=== PATIENT | female | born 1985 | race Caucasian/White ===

== ENCOUNTER 2016-07-16 14:43 | Emergency (ER) | payer SELFPAY ==
[~2016-07-16] VITALS: Ht 162.6 cm; Wt 63.5 kg
[2016-07-16 14:58] VITALS: BP 108/70
[2016-07-16] MEDS ORDERED: LORAZEPAM 2 MG/ML VIAL IM ONE ×2 (15:15→16:00)
--- NOTE | 2016-07-16 15:19 | PHYS DOC ---
Past Medical History Past Medical History: Unknown Additional Past Medical Histor: PTSD Past Surgical History: Alcohol Use: Occasionally Drug Use: Other Social History Narrative: PCP, Amphetamine Adult General Chief Complaint Chief Complaint: ALTERED MENTAL STATUS HPI HPI Patient is a 31 year old female who presents by EMS for erratic behavior noticed by bystanders. Bystanders suspected she overdosed on something so they called EMS. 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 She has no complaints at this time. Review of Systems Review of Systems Constitutional: Denies fever or chills [] Eyes: Denies change in visual acuity, redness, or eye pain [] HENT: Denies nasal congestion or sore throat [] Respiratory: Denies cough or shortness of breath [] Cardiovascular: No additional information not addressed in HPI [] GI: Denies abdominal pain, nausea, vomiting, bloody stools or diarrhea [] : Denies dysuria or hematuria [] Musculoskeletal: Denies back pain or joint pain [] Integument: Denies rash or skin lesions [] Neurologic: Denies headache, focal weakness or sensory changes [] Endocrine: Denies polyuria or polydipsia [] Current Medications Current Medications Current Medications Medications (Trade) Dose Ordered Sig/Toy Start Time Stop Time Status Last Admin Dose Admin Lorazepam (Ativan) 2 mg 1X ONCE 07/16/16 16:00 07/16/16 16:03 DC Allergies Allergies Allergies Coded Allergies Type Severity Reaction Last Updated Verified No Known Drug Allergies 01/15/15 No Physical Exam Physical Exam Constitutional: Well developed, well nourished, no acute distress, non-toxic appearance. Has some rhythmic and writhing movements of upper body [] HENT: Normocephalic, atraumatic, bilateral external ears normal, oropharynx moist, no oral exudates, nose normal. [] Eyes: PERRLA, EOMI, conjunctiva normal, no discharge. [] Neck: Normal range of motion, no tenderness, supple, no stridor. [] Cardiovascular:Heart rate regular rhythm [] Lungs & Thorax: Bilateral breath sounds clear to auscultation [] Abdomen: Bowel sounds normal, soft, no tenderness. [] Skin: Warm, dry, no erythema, no rash. [] Back: No tenderness, no CVA tenderness. [] Extremities: No tenderness, ROM intact, no edema. [] Neurologic: Alert and oriented to self and situation, normal motor function, normal sensory function, no focal deficits noted. [] Psychologic: Affect normal, judgement impaired by intoxication, mood normal. [] Current Patient Data Vital Signs Vital Signs Date Time Temp Pulse Resp B/P Pulse Ox O2 Delivery O2 Flow Rate FiO2 07/16/16 14:58 97.9 129 22 108/70 100 Room Air 97.9 Lab Values Laboratory Tests Test 07/16/16 15:19 Glucose (Fingerstick) 82mg/dL (70-99) Course & Med Decision Making Course & Med Decision Making Pertinent Labs and Imaging studies reviewed. (See chart for details) She was given ativan and she calmed. She sobered appropriately and became AOx3 and wanted to be discharged. Drug cessation discussed. Return precautions given. She understood. Dragon Disclaimer Dragon Disclaimer This electronic medical record was generated, in whole or in part, using a voice recognition dictation system. Departure Departure Impression: Primary Impression: Agitation Disposition: 01 HOME, SELF-CARE Condition: STABLE Referrals: MAHAD LAM DO (PCP) Patient Instructions: Alcohol and Drug Addiction, Finding Treatment Additional Instructions: Follow-up with your primary care doctor. Return for any concerns. Gary CROOKS MD Jul 16, 2016 15:19
== END 2016-07-16 18:10 | disposition home or self-care (01) ==
LOC: ER 14:43
DX: R45.1 Restlessness and agitation (principal); F16.10 Hallucinogen abuse, uncomplicated; F43.10 Post-traumatic stress disorder, unspecified; F15.10 Other stimulant abuse, uncomplicated
CPT/HCPCS: 82947; 96372; 99283; J2060

== ENCOUNTER 2017-01-08 15:44 | Emergency (ER) | payer SELFPAY ==
[~2017-01-08] VITALS: Ht 157.5 cm; Wt 63.5 kg
--- NOTE | 2017-01-08 16:39 | PHYS DOC ---
Past Medical History Past Medical History: Unknown Additional Past Medical Histor: PTSD Past Surgical History: Alcohol Use: Occasionally Drug Use: Other Adult General Chief Complaint Chief Complaint: ABDOMINAL PAIN IN HPI HPI Patient is a 31 year old female who presents with left upper jaw pain. She states it started yesterday when she was eating Doritos when he got stuck into her jaw where a tooth was knocked out approximately a year ago. She denies any fevers chills nausea or vomiting. She denies any trouble swallowing, talking. She also complains about some intermittent right rib pain in the right lower chest that started hurting intermittently since yesterday. She noted that yesterday she was working out in her garden a lot and states whenever she moves a certain direction makes the spot hurt. She was concerned that her jaw could be infected and that would affect her baby she was told some he also a miscarriage because of a jaw infection. She denies any abdominal pain, vaginal bleeding, discharge. Patient states she's been taking Advil over the last 2 days for her tooth pain. Review of Systems Review of Systems Constitutional: Denies fever or chills [] Eyes: Denies change in visual acuity, redness, or eye pain [] HENT: Denies nasal congestion or sore throat [] Respiratory: Denies cough or shortness of breath [] Cardiovascular: No additional information not addressed in HPI [] GI: Denies abdominal pain, nausea, vomiting, bloody stools or diarrhea [] : Denies dysuria or hematuria [] Musculoskeletal: Denies back pain or joint pain [] Integument: Denies rash or skin lesions [] Neurologic: Denies headache, focal weakness or sensory changes [] Endocrine: Denies polyuria or polydipsia [] Allergies Allergies Allergies Coded Allergies Type Severity Reaction Last Updated Verified No Known Drug Allergies 01/15/15 No Physical Exam Physical Exam Constitutional: Well developed, well nourished, no acute distress, non-toxic appearance. [] HENT: Normocephalic, atraumatic, bilateral external ears normal, oropharynx moist, no oral exudates, nose normal. Tooth 11 broken off at the gumline, mild tenderness palpation around the gum without any fluctuants noted, no Juan angina noted, no stridor noted Eyes: PERRLA, EOMI, conjunctiva normal, no discharge. [] Neck: Normal range of motion, no tenderness, supple, no stridor. [] Cardiovascular:Heart rate regular rhythm, no murmur [] Lungs & Thorax: Bilateral breath sounds clear to auscultation, mild tenderness over right lateral anterior ribs, Abdomen: Bowel sounds normal, soft, no tenderness, no masses, no pulsatile masses. Gravid uterus Skin: Warm, dry, no erythema, no rash. [] Back: No tenderness, no CVA tenderness. [] Extremities: No tenderness, no cyanosis, no clubbing, ROM intact, no edema. [] Neurologic: Alert and oriented X 3, normal motor function, normal sensory function, no focal deficits noted. [] Psychologic: Affect normal, judgement normal, mood normal. [] Current Patient Data Vital Signs Vital Signs Date Time Temp Pulse Resp B/P (MAP) Pulse Ox O2 Delivery O2 Flow Rate FiO2 01/08/17 18:30 71 18 110/67 (81) 99 Room Air 01/08/17 16:40 98.3 98.3 Lab Values Laboratory Tests Test 01/08/17 15:42 01/08/17 16:26 01/08/17 17:15 POC Urine HCG, Qualitative Hcg positive (Negative) Urine Collection Type Void Urine Color Yellow Urine Clarity Clear Urine pH 6.0 Urine Specific [place] >=1.030 Urine Protein Negative mg/dL (NEG-TRACE) Urine Glucose (UA) Negative mg/dL (NEG) Urine Ketones (Stick) Trace mg/dL (NEG) Urine Blood Negative (NEG) Urine Nitrite Negative (NEG) Urine Bilirubin Small (NEG) Urine Urobilinogen Dipstick 0.2 mg/dL (0.2 mg/dL) Urine Leukocyte Esterase Small (NEG) Urine RBC 0 /HPF (0-2) Urine WBC 5-10 /HPF (0-4) Urine Squamous Epithelial Cells Many /LPF Urine Bacteria Many /HPF (0-FEW) Urine Mucus Marked /LPF White Blood Count 12.6 x10^3/uL (4.0-11.0) H Red Blood Count 3.40 x10^6/uL (3.50-5.40) L Hemoglobin 11.4 g/dL (12.0-15.5) L Hematocrit 32.4 % (36.0-47.0) L Mean Corpuscular Volume 95 fL (79-100) Mean Corpuscular Hemoglobin 34 pg (25-35) Mean Corpuscular Hemoglobin Concent 35 g/dL (31-37) Red Cell Distribution Width 13.0 % (11.5-14.5) Platelet Count 373 x10^3/uL (140-400) Neutrophils (%) (Auto) 80 % (31-73) H Lymphocytes (%) (Auto) 15 % (24-48) L Monocytes (%) (Auto) 4 % (0-9) Eosinophils (%) (Auto) 1 % (0-3) Basophils (%) (Auto) 1 % (0-3) Neutrophils # (Auto) 10.1 x10^3uL (1.8-7.7) H Lymphocytes # (Auto) 1.8 x10^3/uL (1.0-4.8) Monocytes # (Auto) 0.5 x10^3/uL (0.0-1.1) Eosinophils # (Auto) 0.1 x10^3/uL (0.0-0.7) Basophils # (Auto) 0.1 x10^3/uL (0.0-0.2) Prothrombin Time 12.4 SEC (11.7-14.0) Prothrombin Time INR 1.0 (0.8-1.1) PTT 30 SEC (24-38) Sodium Level 137 mmol/L (136-145) Potassium Level 3.5 mmol/L (3.5-5.1) Chloride Level 103 mmol/L (98-107) Carbon Dioxide Level 22 mmol/L (21-32) Anion Gap 12 (6-14) Blood Urea Nitrogen 13 mg/dL (7-20) Creatinine 0.5 mg/dL (0.6-1.0) L Estimated GFR (Cockcroft-Gault) 143.0 Glucose Level 131 mg/dL (70-99) H Calcium Level 8.4 mg/dL (8.5-10.1) L Magnesium Level 1.7 mg/dL (1.8-2.4) L Laboratory Tests 01/08/17 17:15 Laboratory Tests 01/08/17 17:15 EKG EKG [] Radiology/Procedures Radiology/Procedures [facility] [address] [place] [address] IMAGING REPORT Signed PATIENT: BETTE MONTALVO ACCOUNT: [id number] : 1985 LOCATION: ER AGE: 31 SEX: F EXAM STATUS: REG ER ORD. PHYSICIAN: MICHELLE ESPARZA MD REASON: PELVIC PAIN PROCEDURE: PREG MORE THAN OR EQ TO 14 WKS Pelvic ultrasound Indication: Pelvic pain. patient with gestation age of 18 weeks 5 days. . Technique: Grayscale and color Doppler ultrasound images of the pelvis obtained. Comparison: None Findings: The cervix measures 5 cm and is within normal limits. Single intrauterine with breech presentation noted. The location of placenta is anteriorly. The biparietal diameter measures 4.10 cm corresponding to 38% with estimated gestation age of 18 weeks 3 days. The head circumference measures 15.4 cm and corresponds to estimated gestational age of 18 weeks 3 days. The abdominal circumference measures 13.27 cm corresponding to 48% with estimated gestation age of 18 weeks 5 days. The femoral length measures 2.84 cm corresponding to 43% with estimated gestation age of 18 weeks 5 days. cardiac activity is demonstrated at the right of 1 50 bpm. Estimated weight of 238g. Impression: Single viable intrauterine with breech presentation with estimated gestational age of 18 weeks 4 days and sonographic EDC of 06/07/2017. DICTATED and SIGNED BY: JOSLYN REDD DO DATE: 01/08/17 171 CC: MICHELLE ESPARZA MD; NO PCP ~ Impressions: Dental pain Course & Med Decision Making Course & Med Decision Making Pertinent Labs and Imaging studies reviewed. (See chart for details) Ultrasound did not show acute abnormality's. I'm not concerned with an abscess or other concerns with her tooth however I will treat with Pen-Vee K for the next 7 days and have her follow-up with dentist. I'm not concerned with her rib pain and she likely just pulled a muscle. She is instructed to get worse follow- up with her OB or return back to ER. I also instructed her stopped using nonsteroidals and she can use Tylenol for discomfort. Return precautions given. She is agreeable to the plan and being discharged in stable condition. Dragon Disclaimer Dragon Disclaimer This electronic medical record was generated, in whole or in part, using a voice recognition dictation system. Departure Departure Impression: Primary Impression: Pain, dental Disposition: ADMITTED INPATIENT Condition: STABLE Referrals: NO PCP (PCP) Patient Instructions: Dental Caries Additional Instructions: You will need to take antibiotics for the next 7 days and follow-up with your dentist.. Please do not use Advil or Aleve or Motrin why you're . You can use Tylenol as instructed on the bottle. Return ER for severe pain, uncontrolled fevers, difficulty talking, swallowing, or other concerns. Scripts Penicillin V Potassium (PENICILLIN V POTASSIUM) 500 Mg Tablet 1 TAB PO QID, #28 TAB Prov: MICHELLE ESPARZA MD 01/08/17 MICHELLE ESPARZA MD Jan 08, 2017 16:39
[2017-01-08 16:57] LABS: BILIRUBIN,URINE SMALL (NEG); GLUCOSE,URINE NEGATIVE (NEG); NITRITE,URINE NEGATIVE (NEG); PROTEIN,URINE NEGATIVE (NEG-TRACE); UROBILINOGEN,URINE 0.2 mg/dL (0.2 mg/dL)
[2017-01-08 17:27] LABS: RBC,URINE 0 /HPF (0-2)
--- NOTE | 2017-01-08 17:27 | RAD ---
Pelvic ultrasound Indication: Pelvic pain. patient with gestation age of 18 weeks 5 days. . Technique: Grayscale and color Doppler ultrasound images of the pelvis obtained. Comparison: None Findings: The cervix measures 5 cm and is within normal limits. Single intrauterine with breech presentation noted. The location of placenta is anteriorly. The biparietal diameter measures 4.10 cm corresponding to 38% with estimated gestation age of 18 weeks 3 days. The head circumference measures 15.4 cm and corresponds to estimated gestational age of 18 weeks 3 days. The abdominal circumference measures 13.27 cm corresponding to 48% with estimated gestation age of 18 weeks 5 days. The femoral length measures 2.84 cm corresponding to 43% with estimated gestation age of 18 weeks 5 days. cardiac activity is demonstrated at the right of 1 50 bpm. Estimated weight of 238g. Impression: Single viable intrauterine with breech presentation with estimated gestational age of 18 weeks 4 days and sonographic EDC of 06/07/2017.
[2017-01-08 17:28] LABS: BACTERIA,URINE MANY /HPF (0-FEW); SQUAMOUS EPITHELIAL CELL,UR MANY /LPF
[2017-01-08 17:32] LABS: BASO # 0.1 x10^3/uL (0.0-0.2); BASO % 1 % (0-3); EOS % 1 % (0-3); HEMATOCRIT 32.4 % (36.0-47.0); HEMOGLOBIN 11.4 g/dL (12.0-15.5); LYMPH # 1.8 x10^3/uL (1.0-4.8); LYMPH % 15 % (24-48); MEAN CORPUSCULAR HEMOGLOBIN 34 pg (25-35); MEAN CORPUSCULAR HGB CONC 35 g/dL (31-37); MEAN CORPUSCULAR VOLUME 95 fL (79-100); MONO % 4 % (0-9); NEUT % 80 % (31-73); PLATELET COUNT 373 x10^3/uL (140-400); WHITE BLOOD COUNT 12.6 x10^3/uL (4.0-11.0)
[2017-01-08 17:39] LABS: CALCIUM 8.4 mg/dL (8.5-10.1); CREATININE 0.5 mg/dL (0.6-1.0); MAGNESIUM 1.7 mg/dL (1.8-2.4); POTASSIUM 3.5 mmol/L (3.5-5.1)
[2017-01-08] MEDS ORDERED: PENI500T PO (17:41)
[2017-01-08 17:44] LABS: PROTHROMBIN TIME PATIENT 12.4 SEC (11.7-14.0)
[2017-01-08 18:30] VITALS: BP 110/67
== END 2017-01-08 18:55 | disposition other institution (70) ==
LOC: ER 15:44
DX: O99.612 Diseases of the digestive system complicating pregnancy, second trimester (principal); O99.512 Diseases of the respiratory system complicating pregnancy, second trimester; K08.89 Other specified disorders of teeth and supporting structures; R07.89 Other chest pain; F43.10 Post-traumatic stress disorder, unspecified; Z3A.18 18 weeks gestation of pregnancy
CPT/HCPCS: 36415; 76805; 80048; 81001; 81025; 83735; 85025; 85610; 85730; 86900; 86901; 87086; 99285

== ENCOUNTER 2017-05-31 00:08 | Inpatient (IN) | payer OTHER ==
[2017-05-31] MEDS: IV RINGERS,LACTATED 1000ML 1,000 ML IV (00:15)
[2017-05-31 00:37] LABS: BILIRUBIN,URINE NEGATIVE (NEG); CLARITY,URINE CLEAR; COLOR,URINE YELLOW; GLUCOSE,URINE NEGATIVE (NEG); NITRITE,URINE NEGATIVE (NEG); PROTEIN,URINE NEGATIVE (NEG-TRACE); UROBILINOGEN,URINE 0.2 mg/dL (0.2 mg/dL)
[2017-05-31 00:47] LABS: BACTERIA,URINE MANY /HPF (0-FEW); BARBITURATES NEG (NEG); BENZODIAZEPINES NEG (NEG); CANNABINOIDS NEG (NEG); COCAINE NEG (NEG); METHADONE NEG (NEG); OPIATES NEG (NEG); PHENCYCLIDINE NEG (NEG); SQUAMOUS EPITHELIAL CELL,UR MANY /LPF
[2017-05-31 00:49] LABS: AMPHETAMINE/METHAMPHETAMINE NEG (NEG); ETHANOL, URINE NEG (NEG)
[2017-05-31] MEDS ORDERED: IV RINGERS,LACTATED 1000ML 1,000 ML IV (01:30)
[2017-05-31] MEDS: hydrOXYzine PAMOATE 25 MG CAPSULE PO (02:14)
[2017-05-31 03:02] LABS: ADD MAN DIFF? NO
[2017-05-31 03:04] LABS: BASO # 0.1 x10^3/uL (0.0-0.2); BASO % 1 % (0-3); EOS # 0.1 x10^3/uL (0.0-0.7); EOS % 1 % (0-3); HEMATOCRIT 37.8 % (36.0-47.0); HEMOGLOBIN 12.7 g/dL (12.0-15.5); LYMPH # 2.2 x10^3/uL (1.0-4.8); LYMPH % 16 % (24-48); MEAN CORPUSCULAR HEMOGLOBIN 33 pg (25-35); MEAN CORPUSCULAR HGB CONC 34 g/dL (31-37); MEAN CORPUSCULAR VOLUME 97 fL (79-100); MONO # 0.8 x10^3/uL (0.0-1.1); MONO % 6 % (0-9); NEUT # 10.6 x10^3uL (1.8-7.7); NEUT % 77 % (31-73); PLATELET COUNT 381 x10^3/uL (140-400); RED BLOOD COUNT 3.89 x10^6/uL (3.50-5.40); RED CELL DISTRIBUTION WIDTH 13.7 % (11.5-14.5); WHITE BLOOD COUNT 13.9 x10^3/uL (4.0-11.0)
[2017-05-31 03:23] LABS: ALBUMIN 2.4 g/dL (3.4-5.0); ALBUMIN/GLOBULIN RATIO 0.6 (1.0-1.7); ALK PHOS 165 U/L (46-116); ALT (SGPT) 14 U/L (14-59); ANION GAP 14 (6-14); AST (SGOT) 15 U/L (15-37); BLOOD UREA NITROGEN 10 mg/dL (7-20); BUN/CREATININE RATIO 20 (6-20); CALCIUM 8.4 mg/dL (8.5-10.1); CARBON DIOXIDE 20 mmol/L (21-32); CHLORIDE 104 mmol/L (98-107); CREATININE 0.5 mg/dL (0.6-1.0); GFR 142.1; GLUCOSE 89 mg/dL (70-99); LACTATE DEHYDROGENASE 137 U/L (81-234); POTASSIUM 4.2 mmol/L (3.5-5.1); SODIUM 138 mmol/L (136-145); TOTAL BILIRUBIN 0.2 mg/dL (0.2-1.0); TOTAL PROTEIN 6.6 g/dL (6.4-8.2); URIC ACID 4.4 mg/dL (2.6-6.0)
[2017-05-31] MEDS: PENICILLIN G K 5,000,000 UNIT in IV DEXTROSE 5% 100 ML IV (03:30)
[2017-05-31] MEDS ORDERED: ROPIVacaine 0.2% IN 0.9%NACL PF 40 MG/20 ML DISP.SYRIN. ×2 (03:42→04:00)
[2017-05-31] MEDS ORDERED: L&D EPIDURAL SYRINGE 0 ML EP (03:42)
[2017-05-31] MEDS ORDERED: LIDOCAINE 1% PF 30 ML VIAL. (03:50)
[2017-05-31] MEDS ORDERED: OXYTOCIN 30 UNIT/500 ML PREMIX 500 ML IV ×2 (03:50→04:30)
[2017-05-31] MEDS ORDERED: L&D EPIDURAL 50 ML SYRINGE. EP (04:00)
[2017-05-31] MEDS ORDERED: OXYTOCIN PREMIX 30 UNIT/500 ML BAG. IV (04:00)
[2017-05-31] MEDS ORDERED: oxyCODONE/APAP 5/325 1 TAB TABLET PO (04:30)
[2017-05-31] MEDS ORDERED: ACETAMINOPHEN 325 MG TABLET. PO (04:30)
[2017-05-31] MEDS ORDERED: 0.9 % SODIUM CHLORIDE 10 ML DISP.SYRIN. IV (04:30)
[2017-05-31] MEDS ORDERED: MAG HYDROX/ALUMINUM HYD/SIMETH 30 ML ORAL.SUSP PO (04:30)
[2017-05-31] MEDS ORDERED: MMR per PROTOCOL. MC (04:30)
[2017-05-31] MEDS ORDERED: SIMETHICONE 80 MG TAB.CHEW PO (04:30)
[2017-05-31] MEDS ORDERED: HYDROCORTISONE 1% TOPICAL OINTMENT 30GM TUBE. TP (04:30)
[2017-05-31] MEDS ORDERED: MAGNESIUM HYDROXIDE 2,400 MG/30 ML ORAL.SUSP. PO (04:30)
[2017-05-31] MEDS ORDERED: PHENYLEPH/MINERAL OIL/PETROLAT RECTAL OINTMENT 28GM TUBE. RC (04:30)
[2017-05-31] MEDS ORDERED: diphenhydrAMINE HCL 25 MG CAPSULE PO (04:30)
[2017-05-31] MEDS ORDERED: ZOLPIDEM 5 MG TABLET. PO (04:30)
[2017-05-31] MEDS ORDERED: BENZOCAINE 20% TOPICAL AEROSOL SPRAY 57GM CAN. TP (04:30)
[2017-05-31] MEDS: IBUPROFEN 800 MG TABLET. PO ×2 (06:14→22:43)
[2017-05-31] MEDS ORDERED: PENICILLIN G K 2,500,000 UNIT in IV DEXTROSE 5% 50 ML IV (07:30)
[2017-05-31 16:20] LABS: HEP B SURFACE AG Negative (Negative)
[2017-05-31 17:16] LABS: HIV ANTIBODY Non Reactive (Non Reactive)
[2017-06-01 01:16] LABS: RUBELLA IGG ANTIBODY 3.04 index (Immune >0.99)
[2017-06-01] MEDS: IBUPROFEN 800 MG TABLET. PO ×2 (06:05→16:18)
[2017-06-01 06:16] LABS: ADD MAN DIFF? NO
[2017-06-01 06:34] LABS: BASO # 0.1 x10^3/uL (0.0-0.2); BASO % 1 % (0-3); EOS # 0.2 x10^3/uL (0.0-0.7); EOS % 2 % (0-3); HEMATOCRIT 34.1 % (36.0-47.0); HEMOGLOBIN 11.4 g/dL (12.0-15.5); LYMPH # 2.5 x10^3/uL (1.0-4.8); LYMPH % 21 % (24-48); MEAN CORPUSCULAR HEMOGLOBIN 32 pg (25-35); MEAN CORPUSCULAR HGB CONC 34 g/dL (31-37); MEAN CORPUSCULAR VOLUME 97 fL (79-100); MONO # 0.8 x10^3/uL (0.0-1.1); MONO % 7 % (0-9); NEUT # 8.1 x10^3uL (1.8-7.7); NEUT % 70 % (31-73); PLATELET COUNT 333 x10^3/uL (140-400); RED BLOOD COUNT 3.54 x10^6/uL (3.50-5.40); RED CELL DISTRIBUTION WIDTH 13.7 % (11.5-14.5); WHITE BLOOD COUNT 11.6 x10^3/uL (4.0-11.0)
[2017-06-01 08:24] LABS: RPR Non Reactive (Non Reactive)
[2017-06-01] MEDS: DOCUSATE SODIUM 100 MG CAPSULE. PO (16:18)
[2017-06-01] MEDS: FERROUS SULFATE 325 MG TABLET. PO ×2 (16:18→17:00)
[2017-06-02] MEDS: FERROUS SULFATE 325 MG TABLET. PO (09:48)
[2017-06-02] MEDS: IBUPROFEN 800 MG TABLET. PO (09:48)
== END 2017-06-02 13:24 | disposition home or self-care (01) | DRG 775 ==
LOC: 3 SO LND 00:08 → 3 NORTH 07:56
PROC: 10E0XZZ Delivery of Products of Conception, External Approach (ICD-10-PCS; principal; 2017-05-31)
DX: O34.219 Maternal care for unspecified type scar from previous cesarean delivery (principal); Z37.0 Single live birth; Z3A.38 38 weeks gestation of pregnancy
CPT/HCPCS: 36415; 76815; 80053; 80307; 81001; 83615; 84550; 85025; 86593; 86703; 86762; 86850; 86900; 86901; 86920; 87086; 87340; G0378; J2590; J2795; J7120; Q0177

== ENCOUNTER 2019-03-26 00:07 | Emergency (ER) | payer SELFPAY ==
[~2019-03-26] VITALS: Ht 157.5 cm; Wt 98.0 kg
[~2019-03-26 00:07] MED LIST: IBUP-1060 PO; PENI500T PO
[2019-03-26 00:12] VITALS: BP 143/87
[2019-03-26] MEDS ORDERED: AMOXICILLIN/K CLAV 875/125MG TABLET. PO ONE (01:00)
[2019-03-26] MEDS ORDERED: DEXAMETHASONE 4 MG TABLET PO ONE (01:00)
[2019-03-26] MEDS ORDERED: BUPIVACAINE-EPI 0.5%-1:200000 MPF 30 ML VIAL. INJ PRN (01:00)
--- NOTE | 2019-03-26 01:17 | PHYS DOC ---
Past Medical History Past Medical History: Unknown, Other Additional Past Medical Histor: PTSD Past Surgical History: No Surgical History, Smoking: Cigarettes, Less than 1pk/day Alcohol Use: None Drug Use: None Adult General Chief Complaint Chief Complaint: DENTAL PROBLEM HPI HPI Ms. John is a 34yo F w/ no significant PMH who presents with right lower toothache with known dental caries. The pain began 2 days ago and woke the patient from sleep. The pain is throbbing, radiates to upper right jaw, is constant 8/10, but when touched increases to 10/10. The patient states that they have not had dental insurance for 4 years and has not followed up with a dentist during that time. Admits to having extensive dental complications. She is unable to eat or drink due to pain. Review of Systems Review of Systems Constitutional: Denies fever or chills Eyes: Denies redness or eye pain HENT: Denies nasal congestion or sore throat; reports toothache Respiratory: Denies cough or shortness of breath Cardiovascular: Denies chest pain or palpitations GI: Reports vomiting. Denies abdominal pain or nausea : Denies dysuria or hematuria Musculoskeletal: Reports right lower jaw pain. Denies back pain or joint pain Integument: Denies rash Neurologic: Denies headache, focal weakness or sensory changes Complete systems were reviewed and found to be within normal limits, except as documented in this note. Current Medications Current Medications Current Medications Medications (Trade) Dose Ordered Sig/Toy Start Time Stop Time Status Last Admin Dose Admin Amoxicillin/ Clavulanate Potassium (Augmentin 875/ 125mg) 1 tab 1X ONCE 03/26/19 01:00 03/26/19 01:01 DC 03/26/19 00:54 1 TAB Bupivacaine HCl/ Epinephrine Bitart (Sensorcain-Epi 0.5%-1:820119 Mpf) 30 ml PRN 1X PRN 03/26/19 01:00 03/26/19 01:52 DC 03/26/19 01:00 30 ML Dexamethasone (Decadron) 10 mg 1X ONCE 03/26/19 01:00 03/26/19 01:01 DC 03/26/19 00:53 10 MG Allergies Allergies Allergies Coded Allergies Type Severity Reaction Last Updated Verified No Known Drug Allergies 01/15/15 No Physical Exam Physical Exam Constitutional: Well developed, well nourished, uncomfortable, non-toxic appearance HENT: Normocephalic, atraumatic, oropharynx moist, multiple dental fillings, lateral gum fluctuance inferior to tooth 31 consistent for dental abscess, severe dental decay w/ large part of right first and second mandibular molars Eyes: Conjunctiva normal, no discharge Neck: Normal range of motion, no tenderness, supple Cardiovascular: Heart rate normal, regular rhythm Lungs & Thorax: Bilateral breath sounds clear to auscultation, no wheezing Skin: Warm, dry, no erythema, no rash, right arm port wine stain Neurologic: Alert and oriented X 3, no focal deficits noted Psychologic: Affect normal, judgement normal Current Patient Data Vital Signs Vital Signs Date Time Temp Pulse Resp B/P (MAP) Pulse Ox O2 Delivery O2 Flow Rate FiO2 03/26/19 00:12 98.3 94 14 143/87 (105) 95 Room Air 98.3 EKG EKG [] Radiology/Procedures Radiology/Procedures [] Course & Med Decision Making Course & Med Decision Making Ms. John presented with right lower jaw pain secondary to gum abscess lateral to tooth 31. Patient elected to proceed with a dental nerve block of mandibular nerve using Bupivacaine 0.5% with epi. Right lateral gum abscess incised and drained. Patient administered dexamethasone and Augmentin. Patient counseled on use of warm saltwater mouth rinse and importance of following up with a dentist. Patient stable for discharge with outpatient follow-up with PCP/dentist. Dental referral sheet provided. Discussed findings and plan with patient, who acknowledges understanding and agreement. Dragon Disclaimer Dragon Disclaimer This electronic medical record was generated, in whole or in part, using a voice recognition dictation system. Additional Procedures Progress Dental block and abscess drainage: Verbal consent obtained. Time out performed. Hand hygiene utilized. Anesthesia obtained via a 25-gauge hypodermic needle with (5) mL's of Bupivacaine 0.5% with epinephrine via right inferior alveolar block. Allowed time for block to take affect. Reports interval improvement of pain. Abscess incised lateral to tooth at site of fluctuance with 11 blade and expressed with long qtip with adequate purulent drainage. Patient rinsed mouth with water. Patient tolerated procedure well and without difficulty. Departure Departure Impression: Primary Impression: Dental abscess Disposition: HOME, SELF-CARE Condition: IMPROVED Referrals: NO PCP (PCP) Patient Instructions: Dental Abscess Scripts Hydrocodone/Apap 5-325 (NORCO 5-325 TABLET) 1 Each Tablet 0.5-1 TAB PO PRN Q6HRS PRN for PAIN, #10 TAB 0 Refills Prov: FRANK BUI DO 03/26/19 Chlorhexidine Gluconate (PERIDEX) 15 Ml Mouthwash 15 ML PO BID for 7 Days, #473 ML 0 Refills Prov: FRANK BUI DO 03/26/19 Amoxicillin/Potassium Clav (AUGMENTIN 875-125 TABLET) 1 Each Tablet 1 TAB PO BID for 7 Days, #14 TAB 0 Refills Prov: FRANK BUI DO 03/26/19 FRANK BUI DO Mar 26, 2019 01:17
[2019-03-26] MEDS ORDERED: AMOX1TAB61 PO (01:35)
[2019-03-26] MEDS ORDERED: CHLO15MO2 PO (01:35)
[2019-03-26] MEDS ORDERED: HYDR-3164 PO (01:35)
== END 2019-03-26 01:46 | disposition home or self-care (01) ==
LOC: ER 00:07
DX: K04.7 Periapical abscess without sinus (principal); F17.210 Nicotine dependence, cigarettes, uncomplicated
CPT/HCPCS: 41800; 99283; J3490; J8540; 99284-25